=== PATIENT | female | born 1945 | race Caucasian/White ===

== ENCOUNTER → 2020-04-22 | Outpatient (CLI) | payer SELFPAY ==
[~2020-04-22] MED LIST: /RISE35TA; ASPI81TA3; ASTELIN; CELE100C; CETI10TA; CITRACAL; ESTER-C; FIBERCON; FOLI1TAB; KEFL250C; MULTIVIT; NEXI1CAP3; OYST500T; SYNT75TA; VITAMIN D50000 UNT; ZEST20TA4
== END ==
LOC: M LABSMTC 10:53
PROVIDERS: ATTEND Pediatrics
DX: Z20.828 Contact with and (suspected) exposure to other viral communicable diseases (principal)

== ENCOUNTER → 2020-05-10 | Outpatient (CLI) | payer SELFPAY | LOC: M LABSMTC 10:42 | PROVIDERS: ATTEND Pediatrics | DX: Z20.828 Contact with and (suspected) exposure to other viral communicable diseases (principal) ==